=== PATIENT | female | born 1990 | race Two or more races ===

== ENCOUNTER 2023-06-18 15:50 | Inpatient (IN) | payer OTHER ==
[~2023-06-18] VITALS: Ht 154.9 cm; Wt 57.2 kg
[2023-06-18] MEDS ORDERED: PRENATAL CAPLE1 EAC1 (15:52)
[2023-06-18] MEDS ORDERED: SYNTHROID75 MCG PO (15:53)
[2023-06-18] MEDS ORDERED: WELLBUTRIN SR100 MG PO (16:36)
[2023-06-18 17:18] LABS: HEMATOCRIT 36.6 % (36.0-45.00); HEMOGLOBIN 12.4 g/dL (12.0-15.00); MEAN CORPUSCULAR HEMOGLOBIN 26.4 pg (27.00-32.0); MEAN CORPUSCULAR HGB CONC 33.8 g/dl (32.0-36.0); PLATELET COUNT 277 K/uL (150-450); RED BLOOD COUNT 4.69 M/uL (4.00-6.00); RED CELL DISTRIBUTION WIDTH 13.4 % (11.5-14.5)
[2023-06-18 17:21] LABS: URINE APPEARANCE Cloudy; URINE BILIRRUBIN Moderate (NEGATIVE); URINE BLOOD Negative; URINE COLOR Dark Yellow; URINE GLUCOSE Negative (NEGATIVE); URINE LEUKOCYTE Large; URINE NITRATE Negative; URINE PROTEIN 30 (NEGATIVE)
[2023-06-18 17:25] LABS: URINE EPITHELIAL CELLS 83.3 uL (0.0-38.8); URINE RBC 26.5 uL (0.0-20.8); URINE WBC 869.2 uL (0.0-23.2)
[2023-06-18 18:31] LABS: ALBUMIN 2.7 gm/dL (3.4-5.0); BILIRUBIN TOTAL 0.84 mg/dL (0.3-1.2); CALCIUM 8.9 mg/dL (8.5-10.1); CREATININE SERUM 0.8 mg/dL (0.55-1.02); GFR 82.11; GLOBULINA 3.8 G/DL (2.4-3.5); POTASSIUM 4.23 mEq/L (3.5-5.1); TOTAL PROTEIN 6.5 gm/dL (6.4-8.2)
[2023-06-18 18:53] LABS: URINE YEAST MODERATE /hpf
== END 2023-06-19 14:07 | disposition home or self-care (01) | DRG 833 ==
LOC: LDR 15:50 → OB/GYN 18:09
PROVIDERS: ADMIT Obstetrics & Gynecology Maternal & Fetal Medicine; ATTEND Obstetrics & Gynecology Maternal & Fetal Medicine
PROC: 4A1HXCZ Monitoring of Products of Conception, Cardiac Rate, External Approach (ICD-10-PCS; principal; 2023-06-18)
DX: O21.8 Other vomiting complicating pregnancy (principal); O26.893 Other specified pregnancy related conditions, third trimester; A08.4 Viral intestinal infection, unspecified; Z3A.33 33 weeks gestation of pregnancy; Z20.822 Contact with and (suspected) exposure to COVID-19